=== PATIENT | male | born 1985 | race Caucasian/White ===

== ENCOUNTER 2020-12-28 15:21 | Outpatient (CLI) | payer BC | END 2020-12-28 15:22 | disposition home or self-care (01) | LOC: RAD-FRANK 15:21 | PROVIDERS: ATTEND Nurse Practitioner Family | DX: M54.2 Cervicalgia (principal); M47.812 Spondylosis without myelopathy or radiculopathy, cervical region | CPT/HCPCS: 72040 ==

== ENCOUNTER 2021-03-22 10:09 | Outpatient (CLI) | payer BC | END 2021-03-22 10:10 | disposition home or self-care (01) | LOC: TBSIIMAG 10:09 | PROVIDERS: ATTEND Neurological Surgery | DX: M50.90 Cervical disc disorder, unspecified, unspecified cervical region (principal); M47.812 Spondylosis without myelopathy or radiculopathy, cervical region | CPT/HCPCS: 72141 ==